=== PATIENT | female | born 1965 | race Caucasian/White ===

== ENCOUNTER 2017-03-12 13:57 | Emergency (ER) | payer SELFPAY ==
[2017-03-12] MEDS ORDERED: predniSONE 20 MG TABLET PO ONE (14:17)
[2017-03-12] MEDS ORDERED: ALBUTEROL SULFATE/IPRATROPIUM 3 ML NEBU IH ONE ×2 (14:17→14:40)
--- NOTE | 2017-03-12 14:21 | ERNOTE ---
Lower Extremity HPI - General Lower Extremities Pain: leg: right, thigh: right Time Seen by Provider: 03/12/17 14:00 Source: patient Exam Limitations: no limitations - Immun/Allergies/Home Medications Immunizations: IMMUNIZATION HX Immunizations Up to Date Yes History of Influenza Vaccine No Hx Pneumococcal Vaccination No Allergies/Adverse Reactions: Allergies Allergy/AdvReac Type Severity Reaction Status Date / Time tramadol Allergy Verified 03/12/17 14:02 Home Medications: HOME MEDICATIONS Doxycycline Monohydrate 100 mg PO BID #20 tablet 03/12/17 [Last Taken Unknown] Naproxen [Naprosyn] 500 mg PO BID #60 tablet 03/12/17 [Last Taken Unknown] predniSONE [Deltasone] 20 mg PO BID #10 tablet 03/12/17 [Last Taken Unknown] - History of Present Illness Narrative: She also complains of cough, short of breath and wheezing. Her right leg has been somewhat swollen painful for the past few months. Occurred: other - patient had knee surgery 3 years ago however she did start having swelling and pain of the right leg until approximately 6 months ago. Location of Incident: home Method of Injury: Reports: no apparent injury Loss of Consciousness: Reports: no loss of consciousness Associated Symptoms: Reports: other injuries - somewhat painful to bear weight Other Injuries: Reports: none Review of Systems - Review of Systems Constitutional: Present: See HPI EYE: Present: no symptoms reported ENT: Present: no symptoms reported Respiratory: Present: cough, wheezing Cardiology: Present: no symptoms reported Gastrointestinal/Abdominal: Present: no symptoms reported Genitourinary: Present: no symptoms reported Musculoskeletal: Present: other - right leg and thigh pain with swelling Skin: Present: no symptoms reported Neurological: Present: no symptoms reported Endocrine: Present: no symptoms reported Hematologic/Lymphatic: Present: no symptoms reported Psych: Present: no symptoms reported - Patient's Past Medical History Patient History - Medical: No pertinent hx Patient History - Cardiac/Respiratory: No pertinent hx, Pneumonia Patient History - Cancer: No Hx of Cancer Patient History - Surgical Procedures: Pneumothorax, Orthopedic - right knee Patient History - Other: None LMP (females 10-50): Menopausal - Social History Living Situations: home Abuse History: No History of abuse Psych History: No pertinent hx Smoking Status: Current every day smoker Have you smoked in the past 12 months: Yes Do you dip or chew tobacco: No Patient requests Smoking Cessation Consult: No Initiate information on Smoking Cessation: No Alcohol Use: none Drug Use: none - Immunizations Immunizations Up to Date: Yes Hx Pneumococcal Vaccination: No History of Influenza Vaccine: No Physical Exam - Physical Exam General Appearance: Present: wd/wn, alert, moderate distress Head Exam: Present: normal inspection Eye Exam: Normal inspection: bilateral, PERRL: bilateral Ears, Nose, Throat: Present: normal ENT inspection, H, normal pharynx Neck: Present: normal inspection, nontender Respiratory: Present: no respiratory distress, no accessory muscle use, chest nontender, rhonchi, wheezing Cardiovascular/Chest: Present: regular rate, rhythm, no murmur, normal peripheral pulses Gastrointestinal/Abdominal: Present: normal bowel sounds, nontender, nondistended, soft, no organomegaly Rectal Exam: Present: deferred Back Exam: Present: normal inspection, normal range of motion Extremity Exam: Present: normal inspection, normal range of motion, no edema, calf tenderness - as well as thigh tenderness Neurological Exam: Present: alert, oriented, normal mood/affect Skin Exam: Present: normal color, warm/dry Lymphatic Exam: Present: no adenopathy ED Progress - Vital Signs Patient's Vital Signs:: I have reviewed the patient's vital signs. Vital Signs: Vital Signs 03/12/17 14:00 Temperature 36.9 C Pulse Rate 68 Respiratory 17 Rate Blood Pressure 151/93 O2 Sat by Pulse 99 Oximetry - X-Ray X-Ray #1 X-Ray: chest Interpretation: Reviewed by me - CT/Ultrasound CT/Ultrasound Narrative: Doppler ultrasound of the right lower extremity was reviewed - Progress/Reassessment Chief Complaint: Lower Extremity Pain/ Injury Plan - Plan Plan: Patient will be started on doxycycline as well as prednisone and Naprosyn for the leg pain. Patient will follow up with her family physician as needed. Patient was offered an inhaler for bronchospasm but she declined because she said it makes her too jittery. Departure Clinical Impression: COPD (chronic obstructive pulmonary disease) with acute bronchitis, Muscle strain - Departure Disposition: Home self-care Condition: Good Instructions: Chronic Obstructive Pulmonary Disease, [id number], Acute Bronchitis, [id number], Muscle Strain, [id number] Prescriptions: Doxycycline Monohydrate 100 mg PO BID #20 tablet Naproxen [Naprosyn] 500 mg PO BID #60 tablet predniSONE [Deltasone] 20 mg PO BID #10 tablet
[2017-03-12] MEDS ORDERED: predniSONE 20 MG TABLET ONE (14:40)
[2017-03-12 15:04] VITALS: BP 140/92
== END 2017-03-12 15:16 | disposition home or self-care (01) ==
LOC: ER 13:57
DX: J44.0 Chronic obstructive pulmonary disease with (acute) lower respiratory infection (principal); S76.911A Strain of unspecified muscles, fascia and tendons at thigh level, right thigh, initial encounter; S86.911A Strain of unspecified muscle(s) and tendon(s) at lower leg level, right leg, initial encounter; F17.200 Nicotine dependence, unspecified, uncomplicated